=== PATIENT | female | born 1980 | race Caucasian/White ===

== ENCOUNTER 2017-06-25 02:32 | Inpatient (IN) | payer OTHER ==
[2017-06-25] MEDS ORDERED: IBUPROFEN 600 MG TAB PO ONE (02:51)
[2017-06-25] MEDS ORDERED: NS 1,000 ML IV ONE ×3 (02:51→06:21)
[2017-06-25] MEDS ORDERED: ACETAMINOPHEN 500 MG TAB PO ONE (02:51)
--- NOTE | 2017-06-25 02:54 | EDPHY ---
H & P Stated Complaint: FLU FOR PAST 6 DAYS WIOTH FEVER TODAY NOT MEDICATED Time Seen by Provider: 06/25/17 02:39 HPI/ROS: HPI The patient presents with fever which began tonight and awoke her from sleep which was associated with nausea, generalized lightheadedness and a headache. She has been sick for the last 6 days with myalgias, fatigue, cough and rhinorrhea. She reports mild chest pain. 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 She was not given Tamiflu because of several days of symptoms. She has taken Mucinex only. REVIEW OF SYSTEMS Constitutional: Fevers and chills present Eyes: No discharge. ENT: Positive for sore throat. Cardiovascular: No chest pain, no palpitations. Respiratory: Positive for cough, no shortness of breath. Gastrointestinal: No abdominal pain, no vomiting. Genitourinary: No hematuria. Musculoskeletal: No back pain. Skin: No rashes. Neurological: Positive for headache. PMHx: Healthy Soc Hx: Lives at home with family PHYSICAL General Appearance: Alert, no distress Eyes: Pupils equal and round no pallor or injection ENT, Mouth: Mucous membranes moist Respiratory: There are no retractions, lungs are clear to auscultation Cardiovascular: Regular rate and rhythm Gastrointestinal: Abdomen is soft and non-tender, no masses, bowel sounds normal Neurological: A&O, moves all extremities Skin: Warm and dry, no rashes Musculoskeletal: Neck is supple non tender Extremities: symmetrical, full range of motion Psychiatric: Patient is oriented X 3, there is no agitation Source: Patient Exam Limitations: No limitations - Personal History Current Tetanus/Diphtheria Vaccine: No Current Tetanus Diphtheria and Acellular Pertussis (TDAP): No - Medical/Surgical History Hx Asthma: No Hx Chronic Respiratory Disease: No Hx Diabetes: No Hx Cardiac Disease: No Hx Renal Disease: No Hx Cirrhosis: No Hx Alcoholism: No Hx HIV/AIDS: No Hx Splenectomy or Spleen Trauma: No Other PMH: DENIES - Social History Smoking Status: Never smoked Constitutional: Initial Vital Signs Temperature (C) 39.5 C H 06/25/17 02:48 Heart Rate 97 06/25/17 02:48 Respiratory Rate 18 06/25/17 02:48 Blood Pressure 105/69 06/25/17 02:48 O2 Sat (%) 91 L 06/25/17 02:48 O2 Delivery Mode Nasal Cannula O2 (L/minute) 2 Allergies/Adverse Reactions: No Known Allergies Allergy (Unverified 06/25/17 02:50) Home Medications: Medication Instructions Recorded Cholecalciferol Vit D3 [Vitamin D3 1,000 units PO DAILY 06/25/17 (*)] Herbals/Supplements -Info Only 1 ea PO DAILY 06/25/17 Medical Decision Making - Diagnostics Imaging Results: Imaging Impressions Chest X-Ray 06/25/17 03:29 Impression: 1. Left lower lobe and left upper lobe acute pneumonia. 2. Recommend follow up until clear. Imaging: I viewed and interpreted images myself Differential Diagnosis: 37-year-old female presents with fever and nausea with lightheadedness in the setting of 6 days of myalgias, fatigue, cough and rhinorrhea. She tested positive today for influenza B. On arrival here, she is quite febrile to 39.5. Blood pressures are marginal, heart rate is mildly tachycardic. She was started on ibuprofen, Tylenol, IV fluids. After she received these treatments she continued to feel the same, generally weak and fatigued. Chest x -ray demonstrates left upper lobe pneumonia. She remains persistently mildly hypoxic at 91% on room air which improves with oxygen. She received an additional 2 L of fluid, though blood pressures continued to remain marginal. At this time lactate and blood cultures were added. I will treat her for community-acquired pneumonia, however I feel her pneumonia is likely related to influenza. Because she is breast feeding I have reviewed appropriate antibiotics in our antibiogram feel that Augmentin and azithromycin will be best for breast feeding. I will also give her Tamiflu at this point. I will not place a central line as her maps are hovering at about 60-65. I have discussed the case with the hospitalist Dr. Perera who will admit the patient. - Data Points Laboratory Results: Laboratory Results 06/25/17 02:59 06/25/17 02:59 Medications Given: Acetaminophen (Tylenol) 650 mg PO Q4HRS PRN PRN Reason: Pain, Mild/Fever, Can Take PO Stop: 12/22/17 06:47 Last Admin: 06/25/17 10:41 Dose: 650 mg Enoxaparin Sodium (Lovenox) 40 mg SC DAILY ALHAIJ Stop: 12/22/17 08:59 Last Admin: 06/25/17 09:14 Dose: 40 mg Sodium Chloride (Ns) 1,000 mls @ 150 mls/hr IV CONT ALHAJI Stop: 12/22/17 06:59 Last Admin: 06/25/17 08:05 Dose: 1,000 mls Ondansetron HCl (Zofran) 4 mg IVP Q4HRS PRN PRN Reason: Nausea/Vomiting, Can't Take PO Stop: 12/22/17 06:47 Last Admin: 06/25/17 08:12 Dose: 4 mg Discontinued Medications Acetaminophen (Tylenol) 1,000 mg PO EDNOW ONE Stop: 06/25/17 02:52 Last Admin: 06/25/17 02:58 Dose: 1,000 mg Amoxicillin/Clavulanate Potassium (Augmentin 875mg) 875 mg PO EDNOW ONE PRN Reason: Protocol Stop: 06/25/17 04:45 Last Admin: 06/25/17 04:51 Dose: 875 mg Azithromycin (Zithromax) 500 mg PO EDNOW ONE PRN Reason: Protocol Stop: 06/25/17 04:45 Last Admin: 06/25/17 04:51 Dose: 500 mg Sodium Chloride (Ns) 1,000 mls @ 0 mls/hr IV ONCE ONE PRN Reason: Wide Open Stop: 06/25/17 02:52 Last Admin: 06/25/17 02:55 Dose: 1,000 mls Sodium Chloride (Ns) 1,000 mls @ 0 mls/hr IV EDNOW ONE; Wide Open PRN Reason: Protocol Stop: 06/25/17 04:26 Last Admin: 06/25/17 04:38 Dose: 1,000 mls Sodium Chloride (Ns) 1,000 mls @ 0 mls/hr IV EDNOW ONE; Wide Open PRN Reason: Protocol Stop: 06/25/17 06:22 Last Admin: 06/25/17 06:27 Dose: 1,000 mls Sodium Chloride (Ns) 500 mls @ 0 mls/hr IV ONCE ONE PRN Reason: Wide Open Stop: 06/25/17 09:56 Last Admin: 06/25/17 09:56 Dose: 500 mls Ibuprofen (Motrin) 600 mg PO EDNOW ONE Stop: 06/25/17 02:52 Last Admin: 06/25/17 02:57 Dose: 600 mg Levofloxacin (Levaquin) 750 mg PO EDNOW ONE PRN Reason: Protocol Stop: 06/25/17 04:27 Last Admin: 06/25/17 04:58 Dose: Not Given Oseltamivir Phosphate (Tamiflu) 75 mg PO EDNOW ONE Stop: 06/25/17 06:20 Last Admin: 06/25/17 06:31 Dose: 75 mg Departure - Departure Disposition: [facility] Acute Clinical Impression: Influenza, Hypotension Pneumonia Qualifiers: Pneumonia type: due to unspecified organism Laterality: left Lung location: upper lobe of lung Qualified Code(s): J18.1 - Lobar pneumonia, unspecified organism Condition: Good
[2017-06-25 03:41] LABS: PLATELET COUNT 136 10^3/uL (150-400)
[2017-06-25] MEDS ORDERED: AMOXICILLIN/CLAVULANATE POT 875/125 MG TAB PO ONE (04:44)
[2017-06-25] MEDS ORDERED: AZITHROMYCIN 250 MG TAB PO ONE (04:44)
[2017-06-25] MEDS ORDERED: OSELTAMIVIR PHOSPHATE 75 MG CAP PO ONE (06:19)
[2017-06-25] MEDS ORDERED: ONDANSETRON 4 MG/2 ML VIAL IVP PRN (06:48)
[2017-06-25] MEDS ORDERED: HYDROCODONE/APAP 5/325 TAB PO PRN (06:48)
[2017-06-25] MEDS ORDERED: ALBUTEROL 3 ML DEYVIAL IH PRN (06:48)
[2017-06-25] MEDS ORDERED: GUAIFENESIN/DM 10 ML UDCUP PO PRN (06:50)
[2017-06-25] MEDS ORDERED: BENZONATATE 100 MG CAP PO PRN (06:50)
[2017-06-25] MEDS ORDERED: NS 1,000 ML IV SCH (07:00)
--- NOTE | 2017-06-25 07:31 | GHP ---
[f rep st] HISTORY AND PHYSICAL DATE OF ADMISSION: 06/25/2017 SOURCE: Patient provides history, appears reliable. EMR reviewed and case discussed with ED provide harvinder. CHIEF COMPLAINT: Cough and fever. HISTORY OF PRESENT ILLNESS: This is a very pleasant 37-year-old female with no significant past medi gayathri history, who presents to the emergency department today with her family after she developed a fev er at home. For the past 6 days, patient reports that she has had upper respiratory type symptoms wi th cough, rhinorrhea, sore throat, and significant whole body aches and back pain. Additionally, in the last several days, patient has also been having some nonbloody diarrhea as well as some nausea. She denies any melena or hematochezia. The patient's 2 children and at home have had colds b ut have not had the flu. 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 This evening, the patient developed a fever and so she prese nted to the emergency department. Patient has not had fevers prior to this evening. She does report some pleuritic chest pain with coughing and deep breathing. She denies any sensation of dyspnea, bu t she notes that she has been taking more shallow breaths. REVIEW OF SYSTEMS: GENERAL: Positive for fevers, chills, as noted above. SKIN: No rashes sores. E NT: Patient reports some rhinorrhea and sore throat. EYES: No acute changes in vision or ocular kunal n. CV: Patient does report some pleuritic chest pain. No palpitations. RESPIRATORY: See HPI. GI: Nausea without vomiting, diarrhea, as noted per HPI. : No dysuria or hematuria. MUSCULOSKELETA L: Whole body aching. No joint pains. NEURO: Patient denies any focal symptoms. Remainder of review of systems negative except as noted above. ALLERGIES: No known drug allergies. MEDICATIONS: No home medications. Patient does take some envb-[id number]-[id number] supplements. PAST SURGICAL HISTORY: Patient denies. FAMILY HISTORY: Patient reports all family members are healthy. No cardiac disease or diabetes. SOCIAL HISTORY: Patient is , lives with her and 2 daughters, the youngest of whom is 5 months. The patient is still breast-feeding. She does drink an occasional glass of wine. 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 CODE STATUS: Full. PHYSICAL EXAMINATION: VITAL SIGNS: Upon arrival to the emergency department, blood pressure 105/69 initially, heart rate 97, respiratory rate 18, O2 saturation 91% on room air with a temperature of 39 .5. The patient's blood pressures have decreased during her stay in the emergency department. After 2 L, systolic blood pressures dropped down to the 80s over 50s. It has continued to fluctuate betwe en the 100s and 80s systolically. Current blood pressure at bedside 103/55, heart rate in the 90s on nasal cannula. GENERAL: No acute distress. Very pleasant, but ill-appearing female who is resting quietly on the gurney. Her and 2 children are at bedside. The patient does not appear toxi c but quite fatigued. HEAD: Normocephalic, atraumatic. EYES: Extraocular muscles are intact. Pup ils equal, round, reactive to light bilaterally and symmetric. No scleral icterus or conjunctival in jection. ENT: Mucous membranes appear slightly dry. No oropharyngeal erythema or exudates. Dentit ion is intact. NECK: Supple. Trachea midline. CV: Tachycardic with occasional irregular beat. N o murmurs, rubs, or gallops appreciated. ABDOMEN: Slightly distended with positive bowel sounds. S oft, nontender to palpation. No rebound, guarding, or masses appreciated. RESPIRATORY: Patient wit h unlabored breathing. LUNGS: Clear in the upper lung harris, slightly coarse into the bases with c rackles. No wheezing or rhonchi appreciated. : No suprapubic tenderness to palpation. No Chavarria catheter in place. EXTREMITIES: No cyanosis, clubbing, or edema is appreciated. Patient with 2+ pe rudi pulses. No edema. NEURO: Grossly nonfocal. No facial drooping. Patient moves all extremities , able to sit up independently. Strength intact in all extremities. PSYCH: Patient does appear tito te fatigued, but thought process, content, and all questions are appropriate. LABORATORY STUDIES: WBC 4.87, H and H 13.1 and 37.6, MCV of 92.2, platelet count is 136, neutrophil percent 84.8%, no bands. VBG, lactic acid 0.8. Sodium is 141, potassium 3.6, chloride 104, CO2 is 2 1, anion gap 16, BUN 15, creatinine 0.8, GFR greater than 60, glucose is 124, calcium 8.6. Chest x-ray: Image reviewed myself, report is still pending. Some peribronchiolar thickening. Lena ent with some bibasilar streaky opacities, no consolidations, no effusions, no cardiomegaly. ASSESSMENT AND PLAN: A very pleasant 37-year-old female without significant medical history, is curr ently breast-feeding, presents today with complaints of 6 days of upper respiratory-type symptoms, bu t 1-day history of fever, diagnosed with influenza B yesterday. 1. Influenza B. Patient has received Tamiflu, which we will continue. It sounds like patient may h ave had an alternate viral respiratory infection given 6 days of respiratory symptoms with family mem bers also with similar symptoms, but no fever. Today, patient having developed a fever. She does re port that she recently visited her grandmother who is residing in a long term with known outbreak of influenza. Additionally, patient with some bibasilar streaking, but no large consolidations or op acities. She is having systemic inflammatory response syndrome criteria with tachycardia, slight tac hypnea, and fever. Her lactate is within normal limits at this time. Will for now, continue coverag e with antibiotic therapy. Patient has been ordered Augmentin and azithromycin from the emergency de partment as patient is currently breast-feeding. She does plan to continue to pump and breastfeed as possible. 2. Also, patient has developed some hypotension following 2 L of IV fluid. Patient is currently heriberto ng bolused a 3rd L and blood pressures continue to fluctuate between systolics of 100s down to the 80 s. We will continue with aggressive IV fluid hydration. She has not yet voided since arrival to the emergency department. The patient will require higher closer monitoring and so she will be admitted to the SDU. 3. Hypoxia related to influenza. Supplemental oxygen and will titrate down as tolerated to maintain sats greater than 90. 4. Hyperglycemia, is nonfasting. No history of diabetes. Will plan to monitor at this time. 5. Fluid, electrolyte, nutrition. I would continue aggressive IV fluid hydration. Electrolytes live l be monitored and replaced if needed. A regular diet has been ordered. 6. Prophylaxis, SCDs, Lovenox. 7. Code status is full. 8. Disposition: Patient has been admitted to inpatient status to the SDU floor for closer monitorin g given patient's variable blood pressures that have yet to stabilize and continuing aggressive IV fl uid hydration. /[id number]/MODL
[2017-06-25] MEDS: ENOXAPARIN 40 MG/0.4 ML SYR SC SCH (09:14)
[2017-06-25] MEDS ORDERED: NS 500 ML IV ONE (09:55)
[2017-06-25] MEDS: ACETAMINOPHEN 325 MG TAB PO PRN ×2 (10:41→21:30)
--- NOTE | 2017-06-25 13:00 | PDMN ---
Medical Necessity Medical necessity: M282 cPNA- LLL and MARGARET pna, influenza B+, SIRS with tachycardia, slight tachypnea, fever. hypotension -2L IV fluid admin. , hypoxia , hyperglycemia cont, monitoring needed, IV fluids, electrolyte monitoring, IV abx needed. further monitoring and tx needed.
--- NOTE | 2017-06-25 15:28 | GCON ---
[f rep st] CONSULTATION PULMONARY/CRITICAL CARE CONSULTATION DATE OF CONSULTATION: 06/25/2017 REFERRING PHYSICIAN: Adrianna Perera MD REASON FOR REFERRAL: Evaluation and management of influenza pneumonia. HISTORY: The patient is a 37-year-old woman, who was in her usual state of good health when about 6 days ago, she had the onset of some cough, followed by rhinorrhea and sore throat. A day or two ago, she started having some diarrhea as well as body aches. 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 That evening, she developed fe kasey and presented to the emergency department. She was started on Tamiflu last night. She started h aving some increased left-sided pleuritic chest pain and cough, as well as the ongoing fevers and wea kness/myalgias. She was admitted to the hospital this morning with these symptoms, as well as some h ypotension that has responded to fluids. PAST MEDICAL HISTORY: Unremarkable. MEDICATIONS: None except for Tamiflu, just started. ALLERGIES: None. SOCIAL HISTORY: The patient is . She lives with her and 2 daughters. The youngest d josr is 5 months and the patient is breast-feeding. She drinks wine occasionally but does not use alcohol or drugs. FAMILY HISTORY: Remarkable only for the viral illnesses in her family recently. REVIEW OF SYSTEMS: A 10-point review of systems adds nothing to the History of Present Illness. PHYSICAL EXAMINATION: GENERAL: Patient is awake and alert. She is somewhat ill-appearing, quite we ak, lying in bed. VITAL SIGNS: Blood pressure is 96/49, up from 80/44 after getting IV fluids. Hea rt rate 76. Temperature 39.5 early this morning but is now 36.4. Oxygen saturations are 95% on 2 L. HEENT: Normocephalic and atraumatic. No icterus. NECK: No JVD. Trachea is midline. CHEST: Cl ear to auscultation. CARDIAC: Regular rate and rhythm without murmur. ABDOMEN: Soft, nontender. B owel sounds are present. EXTREMITIES: No clubbing, cyanosis, or edema. LABORATORY: A white blood count is 4.9 with a hemoglobin of 13.1. Chemistry group is normal. Proca lcitonin is 0.16. Blood gas shows venous lactate of 0.8. A chest x-ray shows small patchy areas of infiltrate in the left upper and lower lobes. Images reviewed by me. ASSESSMENT: Influenza B pneumonia. This was confirmed with a flu swab. The patient has had constit utional symptoms, fever, and some cough and pleuritic chest pain on the left, which is the same side as her infiltrates. She has just mild hypoxemia but has had significant hypotension that has respond ed to a total of 3 L of IV fluids. Her lactate is normal and her procalcitonin is minimally elevated . Additionally, the patient has also been placed on azithromycin and Augmentin. RECOMMENDATIONS: Continue current IV fluids and Tamiflu. Depending on the clinical course, her anti biotic could be discontinued. Will follow chest x-ray and oxygen needs. /[id number]/MODL
[2017-06-25] MEDS: AMOXICILLIN/CLAVULANATE POT 875/125 MG TAB PO SCH (21:30)
[2017-06-26] MEDS ORDERED: NS 1,000 ML IV ONE (01:14)
[2017-06-26 07:35] VITALS: BP 91/51; PULSE 71; RESP 20; TEMP 98; O2SAT 93
[2017-06-26] MEDS: ENOXAPARIN 40 MG/0.4 ML SYR SC SCH (08:47)
[2017-06-26] MEDS: AMOXICILLIN/CLAVULANATE POT 875/125 MG TAB PO SCH (08:47)
[2017-06-26] MEDS ORDERED: AZITHROMYCIN 250 MG TAB PO SCH (09:00)
--- NOTE | 2017-06-26 09:05 | HOSPPROG ---
Hospitalist Progress Note Assessment/Plan: 37 yo F a/w 6 days of fever, malaise and cough pneumonia: this is a secondary bacterial pneumonia 5 days augmentin/azithro influenza: no tamiflu given multiple days of sx dispo: home today > 30 minutes on dc Subjective: afebrile. feels better. on RA Objective: Vital Signs Temp Pulse Resp BP Pulse Ox 36.7 C 71 20 91/51 L 93 06/26/17 07:27 06/26/17 07:27 06/26/17 07:27 06/26/17 07:27 06/26/17 07:27 06/25/17 06/26/17 06/27/17 05:59 05:59 05:59 Intake Total 9420 Balance 9420 - Physical Exam Constitutional: no apparent distress, appears nourished Eyes: PERRL, anicteric sclera Ears, Nose, Mouth, Throat: moist mucous membranes, hearing normal Cardiovascular: regular rate and rhythym, no murmur, rub, or gallop Respiratory: no respiratory distress, other (improved from yesterday), No no rales or rhonchi, No clear to auscultation Gastrointestinal: normoactive bowel sounds Genitourinary: No georges in urethra Skin: warm, normal color Musculoskeletal: full muscle strength, no muscle tenderness Neurologic: AAOx3 ICD10 Worksheet Patient Problems: Problems Problem Status Onset Hypotension Acute Influenza Acute Pneumonia Acute
--- NOTE | 2017-06-26 17:04 | GDS ---
[f rep st] DISCHARGE SUMMARY DISCHARGE DIAGNOSES: 1. Influenza. 2. Community-acquired pneumonia. HOSPITAL COURSE: Please see admission history and physical by Dr. Adrianna Perera. The patient present ed with fever and cough. She had symptoms for 6 days. She was influenza positive. A chest x-ray sh owed infiltrate. She was started on Augmentin and azithromycin. On the first hospital day, she was on room air. Augmentin and azithromycin were verified to be safe, and as she is, she i s discharged home. /[id number]/MODL
== END 2017-06-26 10:05 | disposition home or self-care (01) | DRG 195 ==
LOC: OBSVTOIN 06:20 → F2N 09:58
PROVIDERS: ADMIT Family Medicine; ATTEND Internal Medicine
DX: J10.08 Influenza due to other identified influenza virus with other specified pneumonia (principal); J15.9 Unspecified bacterial pneumonia
CPT/HCPCS: J1650; J2405